=== PATIENT | female | born 1970 | race American Indian/Alaskan Native ===

== ENCOUNTER 2017-03-12 07:42 | Emergency (ER) | payer MEDICARE ==
[2017-03-12 08:07] VITALS: BP 202/104
[2017-03-12 08:40] LABS: Basophils % (Auto) 0.5 % (0.0-1.8); Eosinophils % (Auto) 1.6 % (0.0-4.3); Hematocrit 36.7 % (30.3-42.9); Hemoglobin 12.1 gm/dl (10.1-14.3); Mean Corpuscular HGB Conc 33 % (30-34); Mean Corpuscular Hemoglobin 28 pg (28-32); Mean Corpuscular Volume 86 fl (79-97); Platelet Count 243 K/mm3 (140-440); Red Blood Count 4.28 M/mm3 (3.65-5.03); Red Cell Distribution Width 15.4 % (13.2-15.2); White Blood Count 11.5 K/mm3 (4.5-11.0)
[2017-03-12 08:44] LABS: Bilirubin,Urine NEG (Negative); Blood,Urine NEG (Negative); Ketones,Urine NEG (Negative); Leukocyte Esterase,Urine NEG (Negative); Mucus,Urine FEW /HPF; Nitrite,Urine NEG (Negative); Protein,Urine <15 mg/dL mg/dL (Negative); Urobilinogen,Urine < 2.0 mg/dL (<2.0)
[2017-03-12 08:48] LABS: Anion Gap 19 mmol/L; BUN/Creatinine Ratio 15.71; Blood Urea Nitrogen 11 mg/dL (7-17); Calcium 8.8 mg/dL (8.4-10.2); Carbon Dioxide 21 mmol/L (22-30); Chloride 98.2 mmol/L (98-107); Glucose 118 mg/dL (65-100); Potassium 3.6 mmol/L (3.6-5.0); Sodium 135 mmol/L (137-145)
--- NOTE | 2017-03-15 15:19 | ED Elopement Review ---
ED Pt Elopement review - Results review Lab results: Laboratory Tests 03/12/17 03/12/17 03/12/17 08:11 08:11 08:11 WBC 11.5 H RBC 4.28 Hgb 12.1 Hct 36.7 MCV 86 MCH 28 MCHC 33 RDW 15.4 H Plt Count 243 Lymph % (Auto) 17.6 [place] % (Auto) 7.9 H Eos % (Auto) 1.6 Baso % (Auto) 0.5 Lymph # 2.0 [place] # 0.9 H Eos # 0.2 Baso # 0.1 Seg Neutrophils % 72.4 H Seg Neutrophils # 8.4 H Sodium 135 L Potassium 3.6 Chloride 98.2 Carbon Dioxide 21 L Anion Gap 19 BUN 11 Creatinine 0.7 Estimated GFR > 60 BUN/Creatinine Ratio 15.71 Glucose 118 H Calcium 8.8 HCG, Qual Negative Urine Color Urine Turbidity Urine pH Ur Specific [place] Urine Protein Urine Glucose (UA) Urine Ketones Urine Blood Urine Nitrite Urine Bilirubin Urine Urobilinogen Ur Leukocyte Esterase Urine WBC (Auto) Urine RBC (Auto) U Epithel Cells (Auto) Urine Mucus 03/12/17 08:29 WBC RBC Hgb Hct MCV MCH MCHC RDW Plt Count Lymph % (Auto) [place] % (Auto) Eos % (Auto) Baso % (Auto) Lymph # [place] # Eos # Baso # Seg Neutrophils % Seg Neutrophils # Sodium Potassium Chloride Carbon Dioxide Anion Gap BUN Creatinine Estimated GFR BUN/Creatinine Ratio Glucose Calcium HCG, Qual Urine Color Yellow Urine Turbidity Clear Urine pH 5.0 Ur Specific [place] 1.015 Urine Protein <15 mg/dl Urine Glucose (UA) Neg Urine Ketones Neg Urine Blood Neg Urine Nitrite Neg Urine Bilirubin Neg Urine Urobilinogen < 2.0 Ur Leukocyte Esterase Neg Urine WBC (Auto) 3.0 Urine RBC (Auto) 2.0 U Epithel Cells (Auto) 2.0 Urine Mucus Few - Call Back decision Pt Call Back Decision: Pt to F/U with PMD (uncontrolled HTN)
== END 2017-03-12 19:41 | disposition left against medical advice (07) ==
LOC: ED 07:42
DX: R11.2 Nausea with vomiting, unspecified (principal); R19.7 Diarrhea, unspecified; M19.90 Unspecified osteoarthritis, unspecified site; J45.909 Unspecified asthma, uncomplicated; E11.9 Type 2 diabetes mellitus without complications; K21.9 Gastro-esophageal reflux disease without esophagitis; I10 Essential (primary) hypertension; F17.200 Nicotine dependence, unspecified, uncomplicated; Z88.0 Allergy status to penicillin; Z53.21 Procedure and treatment not carried out due to patient leaving prior to being seen by health care provider
CPT/HCPCS: 36415; 80048; 81001; 84703; 85025

== ENCOUNTER 2017-09-07 11:12 | Outpatient (CLI) | payer MEDICARE ==
--- NOTE | 2017-09-07 13:21 | Mammography Report ---
Bilateral mammogram: Compared to 02/09/16. CAD study utilized. Findings: Predominant study post tissue bilaterally. No mass or microcalcification. Benign exam. Impression: Benign findings. Annual followup recommended. BI-RADS CATEGORY: 2 = Benign ACR BI-RADS MAMMOGRAPHIC CODES: 0 = Needs additional imaging evaluation; 1 = Negative; 2 = Benign; 3 = Probably benign; 4 = Suspicious; 5 = Malignant; 6 = Known biopsy-proven malignancy COMMENT: 1. Dense breast tissue, i.e., adenosis, fibrocystic changes, etc., may obscure an underlying neoplasm. 2. Approximately 10% of cancers are not detected with mammography. 3. A negative mammography report should not delay biopsy if a clinically suspicious mass is present. COMMENT: Patient follow-up letters are generated in [employer]. Addendum #1 Addendum: Tomographic examination reveals no mass or calcification.
== END 2017-09-07 11:13 | disposition home or self-care (01) ==
LOC: MAMMO 11:12
PROVIDERS: ATTEND Physician Assistant Medical
DX: Z12.31 Encounter for screening mammogram for malignant neoplasm of breast (principal)
CPT/HCPCS: 77063; G0202; 77067

== ENCOUNTER 2019-12-16 22:05 | Emergency (ER) | payer MEDICARE ==
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
[2019-12-16 22:14] VITALS: BP 123/86
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
== END 2019-12-17 02:45 | disposition left against medical advice (07) ==
LOC: ED 22:05
DX: I10 Essential (primary) hypertension (principal); Z53.21 Procedure and treatment not carried out due to patient leaving prior to being seen by health care provider
CPT/HCPCS: 70450

== ENCOUNTER 2020-06-30 08:40 | Emergency (ER) | payer MEDICARE ==
--- NOTE | 2020-06-30 09:15 | Emergency Department Report ---
Minor Respiratory - HPI Chief Complaint: Adult Asthma Stated Complaint: ASTHMA Time Seen by Provider: 06/30/20 09:14 Duration: 3 Days Pain Location: Chest Severity: moderate Minor Respiratory: Yes Cough, Yes Shortness of Breath (W WHEEZING), No Rhinorrhea, No Sore Throat, No Able to Tolerate Fluids, No Ear Pain, No Sick Contacts, No Hemoptysis, No Chest Pain, No Fever Other History: Patient is a pleasant 49-year-old asthmatic comes into the emergency room with wheezing. This is despite taking her nebulizers at home. She has no fever or chills. She has no tachycardia or hypotension. She is coughing only with the wheezing. She has no profound shortness of breath. No chest pain. No known exposure to COVID-19. She has no chest pain. No leg swelling. She states this is her typical asthma and she needs some steroids ED Review of Systems ROS: Stated complaint: ASTHMA Other details as noted in HPI Comment: All other systems reviewed and negative ED Past Medical Hx - Past Medical History Previous Medical History?: Yes Hx Hypertension: Yes Hx Diabetes: Yes ( took her off meds / BORDERLINE) Hx GERD: Yes Hx Arthritis: Yes Hx Asthma: Yes - Surgical History Past Surgical History?: Yes Hx Cholecystectomy: Yes Additional Surgical History: Lumbar fusion 2010 - Family History Family history: no significant - Social History Smoking Status: Current Every Day Smoker Substance Use Type: None - Medications Home Medications: Home Medications Medication Instructions Recorded Confirmed Last Taken Type amLODIPine 10 mg PO DAILY #30 tablet 08/13/19 Unknown Rx Benzonatate [Tessalon Perles] 100 mg PO Q12H PRN #20 capsule 06/30/20 Unknown Rx Cetirizine HCl [ZyrTEC] 10 mg PO DAILY #30 capsule 06/30/20 Unknown Rx Fluticasone [Flonase] 1 spray NS QDAY #1 bottle 06/30/20 Unknown Rx predniSONE [Deltasone] 20 mg PO DAILY #5 tablet 06/30/20 Unknown Rx Minor Respiratory Exam - Exam General: Vital signs noted. No distress. Alert and acting appropriately. HEENT: Yes Moist Mucous Membranes, No Pharyngeal Erythema, No Pharyngeal Exudates, No Rhinorrhea, No Conjuctival Injection, No Frontal Tenderness, No Maxillary Tenderness Ear: Neither TM Bulge, Neither TM Erythema, Neither EAC Pain, Neither EAC Discharge Neck: Yes Supple, No Adenopathy Lungs: Yes Good Air Exchange, Yes Wheezes, No Ronchi, No Stridor, No Cough, No Labored Respirations, No Retractions, No Use of Accessory Muscles, No Other Abnormal Lung Sounds Heart: Yes Regular, No Murmur Abdomen: Yes Normal Bowel Sounds, No Tenderness, No Peritoneal Signs Skin: No Rash, No Edema Neurologic: Alert and oriented, no deficits. Musculoskeletal: Unremarkable. ED Course Vital Signs 06/30/20 08:43 Pulse Rate 107 H Respiratory 20 Rate Blood Pressure 172/123 O2 Sat by Pulse 98 Oximetry ED Medical Decision Making - Radiology Data Radiology results: report reviewed, [facility] - [facility] Decision Making X-ray noted to have no acute process no infiltrate or consolidation. Her vital signs are without fever, hypoxia, or tachycardia. Patient has acute on chronic hypertension. She is taking her medicines. She denies chest pain. She states that she is just upset because of this asthma. Patient has been given a DuoNeb and steroids.. Patient monitored until her blood pressure returned to normal after clonidine Patient being discharged home with PCP follow-up. She has been instructed to monitor her blood pressure. She is going to take her home medications as instructed. Low-fat low-salt and plenty of hydration with water. Patient verbalizes understanding Vital Signs 06/30/20 06/30/20 08:43 09:48 Temperature 98.7 F Pulse Rate 107 H 95 H Respiratory 20 20 Rate Blood Pressure 172/123 171/101 O2 Sat by Pulse 98 100 Oximetry - Differential Diagnosis uri/covid/pna/asthma ae; hx htn Critical care attestation.: If time is entered above; I have spent that time in minutes in the direct care of this critically ill patient, excluding procedure time. ED Disposition Clinical Impression: Asthma with acute exacerbation, Hypertension Disposition: DC-01 TO HOME OR SELFCARE Is pt being admited?: No Does the pt Need Aspirin: No Condition: Stable Instructions: Asthma (ED), Hypertension (ED) Additional Instructions: meds as ordered today diet and activity as tolerated avoid salt drink a lot of water monitor bp and follow up with pcp for recheck referrals below continue home medications Prescriptions: predniSONE [Deltasone] 20 mg PO DAILY #5 tablet Fluticasone [Flonase] 1 spray NS QDAY #1 bottle Benzonatate [Tessalon Perles] 100 mg PO Q12H PRN #20 capsule PRN Reason: Cough Cetirizine HCl [ZyrTEC] 10 mg PO DAILY #30 capsule Referrals: CORINA OLSEN, [Other] - 3-5 Days JUAN DAVISON MD [Staff Physician] - 3-5 Days Time of Disposition: 09:15
[2020-06-30] MEDS ORDERED: methylPREDNISolone Sod Succinate 125 MG/2 ML INJ IM ONE (09:17)
[2020-06-30] MEDS ORDERED: ALBUTEROL 2.5 MG/3 ML NEBU IH ONE (09:17)
[2020-06-30] MEDS ORDERED: BENZONATATE 100 MG CAP PO ONE (09:18)
[2020-06-30] MEDS ORDERED: cloNIDine 0.1 MG TAB PO ONE (09:30)
--- NOTE | 2020-06-30 09:42 | XRay Report ---
CHEST 2 VIEWS INDICATION / CLINICAL INFORMATION: COUGH. COMPARISON: 07/06/2015 FINDINGS: SUPPORT DEVICES: None. HEART / MEDIASTINUM: No significant abnormality. LUNGS / PLEURA: No significant pulmonary or pleural abnormality. .No pneumothorax. ADDITIONAL FINDINGS: No significant additional findings. IMPRESSION: 1. No acute findings. Signer Name: Jese Dinero MD Signed: 06/30/2020 9:37 AM Workstation Name: [id number]
[2020-06-30 10:35] VITALS: BP 138/88
== END 2020-06-30 10:35 | disposition home or self-care (01) ==
LOC: ED 08:40
DX: J45.901 Unspecified asthma with (acute) exacerbation (principal); I10 Essential (primary) hypertension; K21.9 Gastro-esophageal reflux disease without esophagitis; M13.88 Other specified arthritis, other site; F17.200 Nicotine dependence, unspecified, uncomplicated; Z90.49 Acquired absence of other specified parts of digestive tract; Z79.899 Other long term (current) drug therapy; Z88.0 Allergy status to penicillin
CPT/HCPCS: 71046; 94640; 96372; 99283; J2930